=== PATIENT | male | born 1970 | race Two or more races ===

== ENCOUNTER 2021-10-07 11:28 | Emergency (ER) | payer MEDICAID, OTHER ==
[~2021-10-07] VITALS: Ht 182.9 cm; Wt 106.6 kg
[2021-10-07] MEDS ORDERED: ADENOSINE 6 MG/2 ML INJ IV ONE ×2 (11:33→11:45)
[2021-10-07] MEDS ORDERED: SODIUM CHLORIDE 0.9% 500 ML IV ONE (11:45)
[2021-10-07 12:49] LABS: Basophils # (auto) 0.1 10 ^3/uL (0-0.2); Basophils % (auto) 0.9 % (0.0-2.0); Eosinophils # (auto) 0.1 10 ^3/uL (0-0.8); Eosinophils % (auto) 1.7 % (0.0-7.0); Hematocrit 43.8 % (41.0-53.0); Hemoglobin 14.1 g/dL (13.5-17.5); Lymphocytes # (auto) 1.9 10 ^3/uL (0.4-5.4); Lymphocytes % (auto) 23.6 % (10.0-50.0); Mean Corpuscular Hemoglobin 27.4 pg (28.0-32.0); Mean Corpuscular Hgb Conc. 32.3 g/dL (32.0-36.0); Mean Corpuscular Volume 84.9 fL (80.0-100.0); Monocytes # (auto) 0.6 10 ^3/uL (0-1.3); Monocytes % (auto) 7.4 % (0.0-12.0); Neutrophils # (auto) 5.5 10 ^3/uL (1.6-8.6); Neutrophils % (auto) 66.4 % (37.0-80.0); Nucleated Red Blood Cells % 0.1 %; Red Blood Cells 5.16 10^6/uL (4.5-5.90); Red Cell Distribution Width 14.3 % (11.8-14.3); White Blood Cell 8.2 10^3/uL (4.4-10.8)
[2021-10-07 13:16] LABS: Albumin 3.7 g/dL (3.4-5.0); Calcium 8.4 mg/dL (8.5-10.1); Magnesium 2.8 mg/dL (1.6-2.6); Potassium 4.1 mmol/L (3.5-5.1)
[2021-10-07 13:20] LABS: BUN/Creatinine Ratio 15.6; Bilirubin, Total 0.2 mg/dL (0.2-1.0); Total Protein 6.4 g/dL (6.4-8.2)
[2021-10-07 14:00] VITALS: BP 128/57
== END 2021-10-07 14:02 | disposition home or self-care (01) ==
LOC: EDBD 11:28 → ER 11:28
DX: I47.1 Supraventricular tachycardia (principal); I10 Essential (primary) hypertension; E78.5 Hyperlipidemia, unspecified
CPT/HCPCS: 36415; 71045; 80053; 83735; 85025; 93005; 96361; 96374; 99285; J0153; J7040

== ENCOUNTER 2025-02-27 18:41 | Inpatient (IN) | payer BC, MEDICAID ==
[~2025-02-27] VITALS: Ht 182.9 cm; Wt 91.4 kg
[2025-02-27] MEDS: ACETAMINOPHEN 325 MG TAB PO ONE (20:06)
[2025-02-27 20:23] LABS: Eosinophils # (auto) 0.5 10 ^3/uL (0-0.8); Hematocrit 37.2 % (41.0-53.0); Lymphocytes # (auto) 2.4 10 ^3/uL (0.4-5.4); Lymphocytes % (auto) 15.5 % (10.0-50.0); Neutrophils # (auto) 11.1 10 ^3/uL (1.6-8.6)
[2025-02-27 20:24] LABS: Rapid Influenza A Negative (Negative); Rapid Influenza B Negative (Negative)
[2025-02-27 20:24] LABS: Basophils # (auto) 0.2 10 ^3/uL (0-0.2); Eosinophils % (auto) 3.2 % (0.0-7.0); Hemoglobin 12.2 g/dL (13.5-17.5); Mean Corpuscular Hemoglobin 26.8 pg (28.0-32.0); Mean Corpuscular Hgb Conc. 32.9 g/dL (32.0-36.0); Mean Corpuscular Volume 81.4 fL (80.0-100.0); Monocytes # (auto) 1.4 10 ^3/uL (0-1.3); Monocytes % (auto) 9.2 % (0.0-12.0); Neutrophils % (auto) 71.1 % (37.0-80.0); Nucleated Red Blood Cells % 0.1 %; Platelet Count (auto) 440 10^3/uL (140-450); Red Blood Cells 4.56 10^6/uL (4.5-5.90); Red Cell Distribution Width 14.3 % (11.8-14.3); White Blood Cell 15.7 10^3/uL (4.4-10.8)
[2025-02-27 20:31] LABS: COVID19 ANTIGEN SOFIA FIA NEGATIVE (NEGATIVE)
--- NOTE | 2025-02-27 20:38 | DVH ---
EXAM: XR Chest, 1 View CLINICAL INDICATION: SOB TECHNIQUE: Frontal view of the chest. COMPARISON: CHEST PORTABLE on DOS: 10/07/21 FINDINGS: LUNGS AND PLEURAL SPACES: Right basilar atelectasis or pneumonia. No pneumothorax. HEART: Unremarkable. No cardiomegaly. MEDIASTINUM: Unremarkable. Normal mediastinal contour. BONES/JOINTS: Unremarkable. No acute fracture. OTHER FINDINGS: . IMPRESSION: Right basilar atelectasis or pneumonia.
[2025-02-27 20:47] LABS: Albumin 4.2 g/dL (3.2-4.8); Alkaline Phosphatase 75 U/L (46-116); Anion Gap 9 (5-15); BUN/Creatinine Ratio 12.5 (10.0-20.0); Calcium 9.2 mg/dL (8.7-10.4); Carbon Dioxide 28 mmol/L (20-31); Chloride 101 mmol/L (98-107); Glucose 99 mg/dL (74-106); Potassium 4.4 mmol/L (3.5-5.1); Sodium 138 mmol/L (136-145); Total Protein 7.2 g/dL (5.7-8.2)
--- NOTE | 2025-02-27 20:59 | ED.PDOC ---
SOB-HPI HPI Comments 54 y/o M, with PMHx of anxiety, HLD, and HTN presents to the ED for CC of shortness of breath. Patient states, he has been experiencing shortness of breath with associated left sided chest pain [id number]. Patient reports, pain upon inhalation with a productive cough and nasal congestion. Patient describes, chest pain to be non-radiating and tight in nature. Patient comments, that he was seen at Urgent Care for symptoms and was prescribed Amoxicillin. Patient endorses completing course of antibiotics and symptoms subsiding however, symptoms returned days after. Patient denies fever, chills, sore-throat, body- aches, leg swelling, or calf pain. No other symptoms or modifying factors present at this time. Chief Complaint: Shortness of Breath Time Seen by MD: 20:05 Primary Care Provider: Dr. Álvarez Reviewed notes: Nurses Notes, Medications, Allergies Information Source: Patient Mode of Arrival: Ambulatory Severity: Moderate Timing: Months Duration: Since onset Context: At Rest PE Risk Factors: None History of: Anxiety Prehospital treatment: Breathing Tx, Other (ANTIBIOTICS) Modifying Factors: Nothing Associated Signs and Symptoms: Cough, Nasal Congestion, Chest Pain Radiation: No Radiation Location: Chest (R) If cough with SOB: Productive Past Medical History PAST MEDICAL HISTORY: Anxiety, High Lipids, HTN Surgical History: Hernia Repair Family History Family History: Reviewed,noncontributory to illness, Family hx of DM Social History Smoker: Non-Smoker Alcohol: Denies ETOH Use Drugs: Denies Drug Use Lives In: Home Constitutional: denies: chills, diaphoresis, fatigue, fever, malaise, sweats, weakness, others EENTM: reports: nose congestion; denies: blurred vision, double vision, ear bleeding, ear discharge, ear drainage, ear pain, ear ringing, eye pain, eye redness, hearing loss, mouth pain, mouth swelling, nasal discharge, nose bleeding, nose pain, photophobia, tearing, throat pain, throat swelling, voice changes, others Respiratory: reports: cough, shortness of breath; denies: hemoptysis, orthopnea, SOB at rest, SOB with excertion, stridor, wheezing, others Cardiovascular: reports: chest pain; denies: dizzy spells, diaphoresis, Dyspnea on exertion, edema, irregular heart beat, left arm pain, lightheadedness, palpitations, PND, syncope, others Gastrointestinal: denies: abdomen distended, abdominal pain, blood streaked bowels, constipated, diarrhea, dysphagia, difficulty swallowing, hematemesis, melena, nausea, poor appetite, poor fluid intake, rectal bleeding, rectal pain, vomiting, others Genitourinary: denies: burning, dysuria, flank pain, frequency, hematuria, incontinence, penile discharge, penile sore, pain, testicle pain, testicle swelling, urgency, others Neurological: denies: dizziness, fainting, headache, left sided numbness, left sided weakness, numbness, paresthesia, pre-existing deficit, right sided numbness, right sided weakness, seizure, speech problems, tingling, tremors, weakness, others Musculoskeletal: denies: back pain, gout, joint pain, joint swelling, muscle pain, muscle stiffness, neck pain, others Integumetry: denies: bruises, change in color, change in hair/nails, dryness, laceration, lesions, lumps, rash, wounds, others Allergic/Immunocompromised: denies: Difficulty Healing, Frequent Infections, Hives, Itching, others Hematologic/Lymphatic: denies: anemia, blood clots, easy bleeding, easy bruising, swollen glands, others Endocrine: denies: excessive hunger, excessive sweating, excessive thirst, excessive urination, flushing, intolerance to cold, intolerance to heat, unexplained weight gain, unexplained weight loss, others Psychiatric: denies: anxiety, bipolar disorder, depression, hopeless, panic disorder, schizophrenia, sleepless, suicidal, others All Other Systems: Reviewed and Negative Physical Exam General Appearance: No Apparent Distress, Normal HEENT: Normal ENT Inspection, Pharynx Normal, TMs Normal Neck: Full Range of Motion, Non-Tender, Normal, Normal Inspection Respiratory: Chest Non-Tender, Lungs Clear, No Accessory Muscle Use, No Respiratory Distress, Other (LABORED BREATHING) Cardiovascular: No Edema, No Murmur, No Gallop, Normal Peripheral Pulses, Tachycardia Breast Exam: Deferred Gastrointestinal: No Organomegaly, Non Tender, No Pulsatile Mass, Normal Bowel Sounds, Soft Genitalia: Deferred Pelvic: Deferred Rectal: Deferred Extremities: No calf tenderness, Normal capillary refill, Normal inspection, Normal range of motion, Non-tender, No pedal edema Musculoskeletal : Apperance: Normal Neurologic: 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 Was a procedure done?: No Differential Dx Differential Diagnosis: Pneumonia, Sinusitis, Pharyngitis, URI X-Ray, Labs, Meds, VS Vital Signs Date Time Temp Pulse Resp B/P (MAP) Pulse Ox O2 Delivery O2 Flow Rate FiO2 02/27/25 22:03 98.0 100 16 104/61 (75) 98 98.0 02/27/25 20:06 100.9 02/27/25 20:02 114 02/27/25 19:47 18 99 Nasal Cannula* 3 32 02/27/25 19:47 100.9 111 18 126/70 (88) 99 100.9 Lab Test 02/27/25 20:07 02/27/25 19:50 Range/Units White Blood Count 15.7 H 4.4-10.8 10^3/uL Red Blood Count 4.56 4.5-5.90 10^6/uL Hemoglobin 12.2 L 13.5-17.5 g/dL Hematocrit 37.2 L 41.0-53.0 % Mean Corpuscular Volume 81.4 80.0-100.0 fL Mean Corpuscular Hemoglobin 26.8 L 28.0-32.0 pg Mean Corpuscular Hemoglobin Concent 32.9 32.0-36.0 g/dL Red Cell Distribution Width 14.3 11.8-14.3 % Platelet Count 440 140-450 10^3/uL Mean Platelet Volume 8.0 6.9-10.8 fL Neutrophils (%) (Auto) 71.1 37.0-80.0 % Lymphocytes (%) (Auto) 15.5 10.0-50.0 % Monocytes (%) (Auto) 9.2 0.0-12.0 % Eosinophils (%) (Auto) 3.2 0.0-7.0 % Basophils (%) (Auto) 1.0 0.0-2.0 % Neutrophils # (Auto) 11.1 H 1.6-8.6 10 ^3/uL Lymphocytes # (Auto) 2.4 0.4-5.4 10 ^3/uL Monocytes # (Auto) 1.4 H 0-1.3 10 ^3/uL Eosinophils # (Auto) 0.5 0-0.8 10 ^3/uL Basophils # (Auto) 0.2 0-0.2 10 ^3/uL Nucleated Red Blood Cells 0.1 % Sodium Level 138 136-145 mmol/L Potassium Level 4.4 3.5-5.1 mmol/L Chloride Level 101 98-107 mmol/L Carbon Dioxide Level 28 20-31 mmol/L Anion Gap 9 5-15 Blood Urea Nitrogen 8 L 9-23 mg/dL Creatinine 0.64 L 0.700-1.30 mg/dL Glomerular Filtration Rate Calc 111 >90 mL/min BUN/Creatinine Ratio 12.5 10.0-20.0 Serum Glucose 99 74-106 mg/dL Lactic Acid Level 0.8 0.4-2.0 mmol/L Calcium Level 9.2 8.7-10.4 mg/dL Total Bilirubin 0.2 0.2-1.0 mg/dL Aspartate Amino Transferase (AST) 9 L 13-40 U/L Alanine Aminotransferase (ALT) < 9 7-40 U/L Alkaline Phosphatase 75 46-116 U/L B-Type Natriuretic Peptide 31.72 0-100 pg/mL Total Protein 7.2 5.7-8.2 g/dL Albumin 4.2 3.2-4.8 g/dL Influenza Type A Antigen Negative Negative Influenza Type B Antigen Negative Negative SARS-CoV-2 Antigen (Rapid) Negative NEGATIVE Current Medications Medications (Trade) Dose Ordered Sig/Raquel Route Start Time Stop Time Status Last Admin Acetaminophen (Tylenol Tablet) 650 mg ONCE ONCE PO 02/27/25 19:55 02/27/25 19:56 DC 02/27/25 20:[address] [address] Ph: [phone] DIAGNOSTIC IMAGING Diagnostic Imaging Report : [id number] Signed PATIENT: BRENT CHILDRESS ACCT: [id number] UNIT: [id number] : 1970 LOC: ER ROOM / BED: / AGE / SEX: 54 / M ADM STATUS: REG ER SERVICE 04 ORDERING PHYSICIAN: SUDHIR HARO PROCEDURE(s): CXR1 - CHEST XRAY 1 VIEW REASON: SOB ORDER NUMBER(s): [id number], ACCESSION NUMBER(s): [id number] EXAM: XR Chest, 1 View CLINICAL INDICATION: SOB TECHNIQUE: Frontal view of the chest. COMPARISON: CHEST PORTABLE on DOS: 10/07/21 FINDINGS: LUNGS AND PLEURAL SPACES: Right basilar atelectasis or pneumonia. No pneumothorax. HEART: Unremarkable. No cardiomegaly. MEDIASTINUM: Unremarkable. Normal mediastinal contour. BONES/JOINTS: Unremarkable. No acute fracture. OTHER FINDINGS: . IMPRESSION: Right basilar atelectasis or pneumonia. ATED BY: GERALDINE VOSS MD DICTATED DATE/TIME: 02/27/252035 SIGNED BY: GERALDINE VOSS MD SIGNED DATE/TIME: 02/27/252035 CC: X-Ray, Labs, Meds, VS Comment IMAGING: X-RAYS AND CT SCANS WERE REVIEWED AND INTERPRETED BY THIS PROVIDER, RIGHT LOWER LOBE PNEUMONIA E. PENDING RADIOLOGY REVIEW. LABORATORY: LABS REVIEWED AND INTERPRETED BY THIS PROVIDER. ELEVATED WHITE COUNT PATIENT HAS PRIOR MEDICAL VISITS REVIEWED. MED RECONCILIATION PERFORMED VITAL SIGNS REVIEWED PATIENT WILL BE ADMITTED FOR RIGHT LOWER LOBE PNEUMONIA. PATIENT HAS FAILED OUTPATIENT TREATMENT OF ANTIBIOTICS. PATIENT IS MILDLY HYPOXIC UPON ARRIVAL, PLACED ON 3 L NASAL CANNULA. Time of 1ST Reevaluation: 20:35 Reevaluation 1ST: Unchanged Patient Education/Counseling: Diagnosis, Treatment Family Education/Counseling: No Family Present Departure 1 Departure Time of Disposition: 22:07 Impression: Primary Impression: Pneumonia Qualified Codes: J18.9 - Pneumonia, unspecified organism Disposition: ADMITTED INPATIENT Condition: Stable Critical Care Note Critical Care Time?: No Stability Stability form required: No Heart Score Heart Score: Heart Score Response (Comments) Value History N/A 0 EKG N/A 0 Age N/A 0 Risk Factors N/A 0 Troponin N/A 0 Total 0 I personally scribed for SUDHIR HAROP ([email or web address]) on 02/27/25 at 20:59. Electronically submitted by Gale Chew [email or web address]). I personally scribed for SUDHIR HAROP ([email or web address]) on 02/27/25 at 21:23. Electronically submitted by Gale Chew [email or web address]). SUDHIR HARO [facility] February 27, 2025 20:59
[2025-02-27 21:17] LABS: Alanine Aminotransferase < 9 U/L (7-40); Aspartate Aminotransferase 9 U/L (13-40); Bilirubin, Total 0.2 mg/dL (0.2-1.0); Blood Urea Nitrogen 8 mg/dL (9-23)
--- NOTE | 2025-02-27 22:03 | ECG ---
[facility] Test Date: 2025-02-27 Test Time: 20:02:21 Pat Name: BRENT CHILDRESS Department: ER Room: [address] [place] [address] Gender: M Career Services Representative: EMMANUEL : 1970 Requested By: SUDHIR HARO Order Number: [id number] Reading MD: Drake Morejon Measurements Intervals Williamson Rate: 114 P: 50 CO: 148 QRS: -50 QRSD: 86 T: 32 QT: 326 QTc: 449 Interpretive Statements Sinus tachycardia Probable left atrial enlargement Left anterior fascicular block Abnormal R-wave progression, late transition Electronically Signed On 02-28-2025 13:15:23 PDT by Drake Morejon Please click the below link to view image of tracing.
[2025-02-27] MEDS ORDERED: MORPHINE SULFATE INJ 2 MG/ml SYRG IV PRN (23:30)
[2025-02-27] MEDS ORDERED: DOCUSATE SOD 100 MG CAP PO PRN (23:30)
[2025-02-27] MEDS ORDERED: ACETAMINOPHEN 325 MG TAB PO PRN (23:30)
[2025-02-27] MEDS ORDERED: NITROGLYCERIN 0.4 MG SL TAB SL PRN (23:30)
[2025-02-28] VITALS (15 sets, daily range): BP systolic 104–109; BP diastolic 61–64; PULSE 100–116; RESP 14–20; TEMP 98.1; O2SAT 93–98
[2025-02-28] MEDS: cefTRIAXone 1GM/50ML D5W 50 ML IV ONE (00:12)
[2025-02-28] MEDS: AZITHROMYCIN 500MG/ 250ML 250 ML IV ONE (01:49)
--- NOTE | 2025-02-28 03:08 | DVHHP2 ---
MICHAEL OLPEZ CAREER CONSULTANT 02/28/25 0308: History of Present Illness Reason for Visit: Cough congestion History of Present Illness 54-year-old male presents with complaints of cough congestion, shortness of breath and chest tightness x1 month. Patient was initially treated with amoxicillin in the 1st week of January. However symptoms continued. return to urgent care a few weeks later because symptoms had not improved and was then treated with azithromycin. Patient states he completed all antibiotic treatments. Is still complaining of right-sided chest tightness and congestion. On arrival to the emergency department patient is found to be febrile. Treat the emergency department evaluation W 15.7. CXR impression reads right basilar pneumonia or atelectasis. At this time patient denies dizziness, chest pain, nausea, vomiting, leg swelling. Pulmonary: Asthma Smoke: No ALCOHOL: none Drugs: None Lives: with Family Review of Systems Constitutional: Yes: Fever, Weakness; No: Chills, Sweats, Malaise, Other Eyes: No: Pain, Vision change, Conjunctivae inflammation, Eyelid inflammation, Other, Redness ENT: No: Ear pain, Ear discharge, Nose pain, Nose discharge, Nose congestion, Mouth pain, Mouth swelling, Throat pain, Throat swelling, Other Respiratory: Cough, Shortness of breath; No: Dry, SOB with excertion, Wheezing, Hemoptysis, Pleuritic Pain, Sputum, Wheezing, Other Cardiovascular: No: Chest Pain, Palpitations, Orthopnea, Paroxysmal Noc. Dyspnea, Edema, Lt Headedness, Other Gastrointestinal: No: Nausea, Vomiting, Abdominal Pain, Diarrhea, Constipation, Melena, Hematochezia, Other Genitourinary: No Dysuria, No Frequency, No Incontinence, No Hematuria, No Retention, No Other Musculoskeletal: No: other, neck pain, shoulder pain, arm pain, back pain, hand pain, leg pain, foot pain Skin: No: Rash, Lesions, Jaundice, Bruising, Other Neurological: No: Weakness, Numbness, Incoordination, Change in speech, Confusion, Seizures, Other Allergies: Coded Allergies: NO KNOWN ALLERGIES (Unverified , 10/07/21) Medications Current Medications Medications Dose Ordered Sig/Raquel Route Start Time Stop Time Status Last Admin Dose Admin Docusate Sodium 100 mg BIDPRN PRN PO 02/27/25 23:30 Acetaminophen 650 mg Q6HP PRN PO 02/27/25 23:30 Acetaminophen/ Hydrocodone Bitart 1 tab Q6HPRN PRN PO 02/27/25 23:30 Ondansetron HCl 4 mg Q4HP PRN IV 02/27/25 23:30 Morphine Sulfate 2 mg Q4HPRN PRN IV 02/27/25 23:30 Enoxaparin Sodium 40 mg DAILY SC 02/28/25 10:00 Nitroglycerin 0.4 mg Q5MINP PRN SL 02/27/25 23:30 Morphine Sulfate 2 mg Q30M PRN IV 02/27/25 23:30 Ceftriaxone Sodium 50 ml @ 100 mls/hr DAILY IV 02/28/25 10:00 Azithromycin 250 ml @ 125 mls/hr DAILY IV 02/28/25 11:00 Albuterol 2.5 mg Q4HWA NEB 02/28/25 06:00 Exam Vital Signs Vital Signs Date Time Temp Pulse Resp B/P (MAP) Pulse Ox O2 Delivery O2 Flow Rate FiO2 02/28/25 00:26 111 18 104/61 98 3.0 32 02/27/25 22:03 98.0 98.0 02/27/25 19:47 Nasal Cannula* General Appearance: Alert, Oriented X3, Cooperative, mild distress HEENT: Atraumatic, PERRLA, EOMI Respiratory: Other (Diminished air exchange.) Cardiovascular: Regular rate, Normal S1, Normal S2 Abdominal: Normal bowel sounds, Soft, No tenderness Extremities: No clubbing, No cyanosis, No edema Skin: No breakdown Neuro: Normal gait, Normal speech, Strength at 5/5 X4 ext Psych/Mental Status: Mental status NL, Mood NL Labs/Xrays Labs Test 02/27/25 20:07 02/27/25 19:50 Range/Units White Blood Count 15.7 H 4.4-10.8 10^3/uL Red Blood Count 4.56 4.5-5.90 10^6/uL Hemoglobin 12.2 L 13.5-17.5 g/dL Hematocrit 37.2 L 41.0-53.0 % Mean Corpuscular Volume 81.4 80.0-100.0 fL Mean Corpuscular Hemoglobin 26.8 L 28.0-32.0 pg Mean Corpuscular Hemoglobin Concent 32.9 32.0-36.0 g/dL Red Cell Distribution Width 14.3 11.8-14.3 % Platelet Count 440 140-450 10^3/uL Mean Platelet Volume 8.0 6.9-10.8 fL Neutrophils (%) (Auto) 71.1 37.0-80.0 % Lymphocytes (%) (Auto) 15.5 10.0-50.0 % Monocytes (%) (Auto) 9.2 0.0-12.0 % Eosinophils (%) (Auto) 3.2 0.0-7.0 % Basophils (%) (Auto) 1.0 0.0-2.0 % Neutrophils # (Auto) 11.1 H 1.6-8.6 10 ^3/uL Lymphocytes # (Auto) 2.4 0.4-5.4 10 ^3/uL Monocytes # (Auto) 1.4 H 0-1.3 10 ^3/uL Eosinophils # (Auto) 0.5 0-0.8 10 ^3/uL Basophils # (Auto) 0.2 0-0.2 10 ^3/uL Nucleated Red Blood Cells 0.1 % Sodium Level 138 136-145 mmol/L Potassium Level 4.4 3.5-5.1 mmol/L Chloride Level 101 98-107 mmol/L Carbon Dioxide Level 28 20-31 mmol/L Anion Gap 9 5-15 Blood Urea Nitrogen 8 L 9-23 mg/dL Creatinine 0.64 L 0.700-1.30 mg/dL Glomerular Filtration Rate Calc 111 >90 mL/min BUN/Creatinine Ratio 12.5 10.0-20.0 Serum Glucose 99 74-106 mg/dL Lactic Acid Level 0.8 0.4-2.0 mmol/L Calcium Level 9.2 8.7-10.4 mg/dL Total Bilirubin 0.2 0.2-1.0 mg/dL Aspartate Amino Transferase (AST) 9 L 13-40 U/L Alanine Aminotransferase (ALT) < 9 7-40 U/L Alkaline Phosphatase 75 46-116 U/L B-Type Natriuretic Peptide 31.72 0-100 pg/mL Total Protein 7.2 5.7-8.2 g/dL Albumin 4.2 3.2-4.8 g/dL Influenza Type A Antigen Negative Negative Influenza Type B Antigen Negative Negative SARS-CoV-2 Antigen (Rapid) Negative NEGATIVE Assessment/Plan Assessment/Plan Right lobe pneumonia Hypoxia Plan Admit to telemetry Consult pulmonology. Bronchodilators. Supplemental oxygen to maintain oxygen saturation greater than 93%. RT monitoring. Incentive spirometry. IV ABX. GI ppx pepcid / dvt ppx lovenox Plan discussed with: Patient My Orders Orders - MICHAEL LOPEZ NP Procedure Category Date Status Time Admit ADMIT 02/27/25 Transmitted 23:27 Code Status CODE 02/27/25 Transmitted 23:27 Vital Signs SIA 02/27/25 In Process 23:27 Review Orders With SIA 02/27/25 In Process Adm.Md 23:27 Encourage Activity As SIA 02/27/25 In Process Tolerate 23:27 Consistent DIET 02/28/25 Transmitted Carb(Ccho)Diabetes Breakfast Oxygen By Face Mask RT 02/27/25 Transmitted 23:27 Docusate Sodium PHA 02/27/25 In Process Capsule (Colace 23:30 Acetaminophen Tablet PHA 02/27/25 In Process (Tylenol Tablet) 23:30 Notify Of Changes SIA 02/27/25 In Process From Base 23:27 Advance Directive SIA 02/27/25 In Process 23:27 Basic Metabolic Panel LAB 02/28/25 Logged 05:00 Basic Metabolic Panel LAB 03/01/25 Verified 05:00 Basic Metabolic Panel LAB 03/02/25 Verified 05:00 Complete Blood Count LAB 02/28/25 Logged 05:00 Complete Blood Count LAB 03/01/25 Verified 05:00 Complete Blood Count LAB 03/02/25 Verified 05:00 Patient Condition ORDERS 02/27/25 Transmitted 23:27 Allergies SIA 02/27/25 In Process 23:27 Hydrocodone-Acet PHA 02/27/25 In Process 5/325mg Tab ([place] 23:30 Ondansetron Hcl PHA 02/27/25 In Process (Zofran) 23:30 Morphine Sulfate PHA 02/27/25 In Process Injection 23:30 Enoxaparin Sodium PHA 02/28/25 In Process (Lovenox) 10:00 Sequential SIA 02/27/25 In Process Compression Device Nitroglycerin PHA 02/27/25 In Process Sublingual (Ntrostat 23:30 Morphine Sulfate PHA 02/27/25 In Process Injection 23:30 Stat Ekg For Chest SIA 02/27/25 In Process Pain 23:27 Notify Of Changes SIA 02/27/25 In Process From Base 23:27 Wincher For SIA 02/27/25 In Process 24 Hours 23:27 Emergency Dysrhythmia SIA 02/27/25 In Process Protocol 23:27 Rhythm Strips Once SIA 02/27/25 In Process Every Shift 23:27 Oxygen By Nasal RT 02/27/25 Transmitted Cannula 23:27 Ceftriaxone 1gm/50ml PHA 02/28/25 In Process D5w (Rocephin) 10:00 Azithromycin 500mg/ PHA 02/28/25 In Process 250ml (Zithromax 50 11:00 Albuterol Medneb PHA 02/28/25 In Process (Ventolin Medneb) 06:00 Respiratory Culture ALLIE 02/27/25 Logged W/ Gs 23:27 *Consult CONS 02/27/25 Transmitted / 23:27 Date of Service: February 28, 2025 Billing Provider: IAN CARTER MD Common Visit Codes: NOT BILLABLE IAN CARTER MD 02/28/25 1412: Review of Systems Allergies: Coded Allergies: NO KNOWN ALLERGIES (Unverified , 10/07/21) Assessment/Plan My Orders Patient's chart is reviewed. Patient is seen evaluated and admitted by nurse practitioner. I agree with the nurse practitioner's evaluation, documentation, assessment and care plan as outlined. MICHAEL LOPEZ NP February 28, 2025 03:08 IAN CARTER MD February 28, 2025 14:12
[2025-02-28 06:11] LABS: Basophils # (auto) 0.1 10 ^3/uL (0-0.2); Lymphocytes # (auto) 1.7 10 ^3/uL (0.4-5.4); Lymphocytes % (auto) 10.7 % (10.0-50.0)
[2025-02-28 06:17] LABS: Basophils % (auto) 0.5 % (0.0-2.0); Eosinophils # (auto) 0.4 10 ^3/uL (0-0.8); Eosinophils % (auto) 2.3 % (0.0-7.0); Hematocrit 36.7 % (41.0-53.0); Mean Corpuscular Hemoglobin 26.8 pg (28.0-32.0); Mean Corpuscular Hgb Conc. 32.8 g/dL (32.0-36.0); Mean Corpuscular Volume 81.7 fL (80.0-100.0); Monocytes # (auto) 1.6 10 ^3/uL (0-1.3); Monocytes % (auto) 10.2 % (0.0-12.0); Neutrophils % (auto) 76.3 % (37.0-80.0); Platelet Count (auto) 413 10^3/uL (140-450); Red Blood Cells 4.49 10^6/uL (4.5-5.90); Red Cell Distribution Width 14.1 % (11.8-14.3); White Blood Cell 15.7 10^3/uL (4.4-10.8)
[2025-02-28] MEDS: HYDROcodone-ACET 5/325MG TAB PO PRN (06:28)
[2025-02-28 06:34] LABS: Anion Gap 9 (5-15); Carbon Dioxide 29 mmol/L (20-31); Chloride 100 mmol/L (98-107); Potassium 4.2 mmol/L (3.5-5.1); Sodium 138 mmol/L (136-145)
[2025-02-28 06:35] LABS: Calcium 9.2 mg/dL (8.7-10.4)
[2025-02-28 06:40] LABS: BUN/Creatinine Ratio 12.5 (10.0-20.0); Glucose 106 mg/dL (74-106)
[2025-02-28 06:41] LABS: Blood Urea Nitrogen 8 mg/dL (9-23)
[2025-02-28] MEDS: ALBUTEROL SULF 2.5 MG/0.5ML(0.5%) NEB SOLN NEB SCH ×2 (07:08→18:38)
[2025-02-28] MEDS: ONDANSETRON HCL 4 MG/2 ML VIAL IV PRN (08:25)
[2025-02-28] MEDS: MORPHINE SULFATE INJ 2 MG/ml SYRG IV PRN (08:25)
[2025-02-28] MEDS: cefTRIAXone 1GM/50ML D5W 50 ML IV SCH (10:03)
[2025-02-28] MEDS: ENOXAPARIN SOD 40 MG/0.4 ML SYRINGE SC SCH (10:04)
[2025-02-28] MEDS: AZITHROMYCIN 500MG/ 250ML 250 ML IV SCH (11:30)
[2025-02-28] MEDS: HYDROcodone-ACET 10/325MG TAB PO PRN (13:57)
[2025-02-28] MEDS ORDERED: IPRATROPIUM BROM 0.5 MG/2.5ML INH SOL NEB SCH (18:00)
[2025-02-28] MEDS: IPRATROPIUM BROM 0.5 MG/2.5ML INH SOL NEB SCH (18:38)
[2025-02-28] MEDS: BUDESONIDE (INHALATION) 0.5 MG/2 ML NEB NEB SCH (18:38)
--- NOTE | 2025-02-28 22:56 | DVHINCON2 ---
Date of service: February 28, 2025 Referring Physician Gordo Walsh NP Reason for Consultation Acute hypoxic respiratory failure and pneumonia. History of Present Illness A 54-year-old man with past medical history of asthma presented to ED on 02/27/25 with complaints of cough, congestion, shortness of breath and chest tightness x1 month. Patient was initially treated with amoxicillin in the first week of January, however symptoms continued. He returned to urgent care a few weeks later because symptoms had not improved and was then treated with azithromycin. Patient stated he completed all antibiotic treatments, still complaining of right-sided chest tightness and congestion. On arrival to ED, patient was found to be febrile, WBC of 15.7, CXR revealing right basilar pneumonia or atelectasis. Patient was admitted for further care and pulmonary consultation is requested for evaluation and management of acute hypoxic respiratory failure and pneumonia. Review of Systems: 14-point review of systems negative unless otherwise noted above. Past Medical History: Asthma Past Surgical History: None Medications: Reviewed. Allergies: No known drug allergies. Family History: No family history of premature CAD. No family history of lung disorders. Social History: Nonsmoker. No alcohol or illicit drug use. Allergies: Coded Allergies: NO KNOWN ALLERGIES (Unverified , 10/07/21) Home Meds Reported Medications Beclomethasone Dipropionate (Qvar Redihaler) 40 Mcg/Act Aer, 40 MCG IN DAILY, AER 03/01/25 Albuterol Sulfate (VENTOLIN MDI) 90 Mcg Ih, 90 MCG IN DAILY, INH 03/01/25 Hydrocodone-Acetaminophen (Hydrocodone Bitartrate/AC 10-325 mg) 1 Tab Tab, 1 TAB PO DAILY, TAB 03/01/25 Current Medications Current Medications Medications (Trade) Dose Ordered Sig/Raquel Route PRN Reason Start Time Stop Time Status Last Admin Docusate Sodium (Colace Capsule) 100 mg BIDPRN PRN PO FOR CONSTIPATION 02/27/25 23:30 Acetaminophen (Tylenol Tablet) 650 mg Q6HP PRN PO PAIN SCALE 1-3 OR TEMP>100.4 02/27/25 23:30 Acetaminophen/ Hydrocodone Bitart ([place] 5/325MG Tab) 1 tab Q6HPRN PRN PO MODERATE PAIN (4-6 PAIN SCALE) 02/27/25 23:30 02/28/25 12:15 DC 02/28/25 06:28 Ondansetron HCl (Zofran) 4 mg Q4HP PRN IV NAUSEA / VOMITING 02/27/25 23:30 02/28/25 08:25 Morphine Sulfate 2 mg Q4HPRN PRN IV SEVERE PAIN (7-10 PAIN SCALE) 02/27/25 23:30 02/28/25 08:25 Enoxaparin Sodium (Lovenox) 40 mg DAILY SC 02/28/25 10:00 02/28/25 10:04 Nitroglycerin (Ntrostat Sublingual) 0.4 mg Q5MINP PRN SL FOR CHEST PAIN 02/27/25 23:30 Morphine Sulfate 2 mg Q30M PRN IV FOR CHEST PAIN 02/27/25 23:30 Ceftriaxone Sodium 50 ml @ 100 mls/hr DAILY IV 02/28/25 10:00 02/28/25 10:03 Azithromycin 250 ml @ 125 mls/hr DAILY IV 02/28/25 11:00 02/28/25 11:30 Albuterol (Ventolin Medneb) 2.5 mg Q4HWA [facility] 02/28/25 06:00 02/28/25 14:13 DC 02/28/25 13:29 Acetaminophen/ Hydrocodone Bitart ([place] 10/325MG Tab) 1 tab Q6HP PRN PO SEVERE PAIN (7-10 PAIN SCALE) 02/28/25 12:15 02/28/25 22:16 Albuterol (Ventolin Medneb) 2.5 mg Q6HWA [facility] 02/28/25 18:00 02/28/25 18:38 Ipratropium [place] (Atrovent Medneb) 0.5 mg Q6HR [facility] 02/28/25 18:00 02/28/25 14:32 DC Budesonide (Pulmicort) 0.5 mg BID NEB 02/28/25 22:00 02/28/25 18:38 Ipratropium [place] (Atrovent Medneb) 0.5 mg Q6HWA [facility] 02/28/25 18:00 02/28/25 18:38 Vital Signs Vital Signs Date Time Temp Pulse Resp B/P (MAP) Pulse Ox O2 Delivery O2 Flow Rate FiO2 02/28/25 21:00 98.1 110 19 109/64 (79) 95 98.1 02/28/25 18:29 Nasal Cannula* 1 24 Physical Exam Gen.: Patient lying in bed in no apparent distress. On supplemental oxygen. Head: Normocephalic, atraumatic. Eyes: EOMI/PERRLA. Ears: Normal hearing. Normal anatomy. Neck/trachea: Trachea midline, supple. Nose: Normal external anatomy. Mouth: Moist mucous membranes. Chest: Decreased air entry bilaterally. No wheezing or rhonchi. Cardiovascular: Positive S1, positive S2. Regular rate and rhythm. Abdomen: Positive bowel sounds in all 4 quadrants. Soft, non-tender, non- distended. : Deferred. Rectal: Deferred. Skin: Warm, dry. Intact. Extremities: 2+ radial pulses bilaterally. No lower extremity edema. Neuro: Awake, alert, oriented x3. No gross motor or sensory deficits. Cranial nerves II through XII intact. Gait not assessed. Labs/Diagnostic Data Labs Test 02/28/25 05:40 02/27/25 20:07 02/27/25 19:50 Range/Units White Blood Count 15.7 H 4.4-10.8 10^3/uL Red Blood Count 4.49 L 4.5-5.90 10^6/uL Hemoglobin 12.0 L 13.5-17.5 g/dL Hematocrit 36.7 L 41.0-53.0 % Mean Corpuscular Volume 81.7 80.0-100.0 fL Mean Corpuscular Hemoglobin 26.8 L 28.0-32.0 pg Mean Corpuscular Hemoglobin Concent 32.8 32.0-36.0 g/dL Red Cell Distribution Width 14.1 11.8-14.3 % Platelet Count 413 140-450 10^3/uL Mean Platelet Volume 8.4 6.9-10.8 fL Neutrophils (%) (Auto) 76.3 37.0-80.0 % Lymphocytes (%) (Auto) 10.7 10.0-50.0 % Monocytes (%) (Auto) 10.2 0.0-12.0 % Eosinophils (%) (Auto) 2.3 0.0-7.0 % Basophils (%) (Auto) 0.5 0.0-2.0 % Neutrophils # (Auto) 12.0 H 1.6-8.6 10 ^3/uL Lymphocytes # (Auto) 1.7 0.4-5.4 10 ^3/uL Monocytes # (Auto) 1.6 H 0-1.3 10 ^3/uL Eosinophils # (Auto) 0.4 0-0.8 10 ^3/uL Basophils # (Auto) 0.1 0-0.2 10 ^3/uL Nucleated Red Blood Cells 0.0 % Sodium Level 138 136-145 mmol/L Potassium Level 4.2 3.5-5.1 mmol/L Chloride Level 100 98-107 mmol/L Carbon Dioxide Level 29 20-31 mmol/L Anion Gap 9 5-15 Blood Urea Nitrogen 8 L 9-23 mg/dL Creatinine 0.64 L 0.700-1.30 mg/dL Glomerular Filtration Rate Calc 111 >90 mL/min BUN/Creatinine Ratio 12.5 10.0-20.0 Serum Glucose 106 74-106 mg/dL Calcium Level 9.2 8.7-10.4 mg/dL Lactic Acid Level 0.8 0.4-2.0 mmol/L Total Bilirubin 0.2 0.2-1.0 mg/dL Aspartate Amino Transferase (AST) 9 L 13-40 U/L Alanine Aminotransferase (ALT) < 9 7-40 U/L Alkaline Phosphatase 75 46-116 U/L B-Type Natriuretic Peptide 31.72 0-100 pg/mL Total Protein 7.2 5.7-8.2 g/dL Albumin 4.2 3.2-4.8 g/dL Influenza Type A Antigen Negative Negative Influenza Type B Antigen Negative Negative SARS-CoV-2 Antigen (Rapid) Negative NEGATIVE Microbiology Date/Time Source Procedure Growth Status 02/27/25 20:07 Blood Blood Culture - Preliminary NO GROWTH AFTER 24 HOURS OF INCUBATION. Resulted Assessment Impression: Acute hypoxic respiratory failure Dependence on supplemental oxygen Pneumonia, likely gram negative/gram positive Atelectasis Anxiety Asthma, stable. Plan: Supplemental oxygen 2 LPM NC Titrate to keep O2 sats above 92%. Taper O2 as tolerated CXR on 02/27/25 demonstrates right basilar atelectasis or pneumonia. Continue bronchodilators. Continue antibiotics Incentive spirometry Anxiolytic Monitor renal function. Monitor electrolytes. Supplement as necessary. Monitor ins and outs. DVT prophylaxis. Prognosis: Poor given patient's multiple co-morbidities. Rest of plan per hospitalist and other consultants. Thank you, JACKIE Walsh, for allowing me to participate in this patient's care. Further recommendations will depend on the patient's clinical course. Please do not hesitate to contact me if you have any questions or concerns. This medical document was created using an electronic medical record system with [employer] dictation system. Although these documentations are being carefully reviewed, there may still be some phonetic and typographical changes. The errors are purely typographical, due to imperfection on the software program, and do not reflect any compromise in the patient's medical care. Plan discussed with: Patient, Other (JUSTIN Coronado/JACKIE Walsh/) TRUE REGAN MD February 28, 2025 22:56
[2025-03-01] VITALS (15 sets, daily range): BP systolic 98–122; BP diastolic 58–72; PULSE 91–109; RESP 16–28; TEMP 97.8–98.4; O2SAT 90–99
[2025-03-01] MEDS ORDERED: HYDR-4798 PO (03:47)
[2025-03-01] MEDS ORDERED: BECL40AE11 IN (03:50)
[2025-03-01] MEDS ORDERED: ALBUAER3 IN (03:50)
[2025-03-01 06:11] LABS: Basophils # (auto) 0.1 10 ^3/uL (0-0.2); Basophils % (auto) 0.6 % (0.0-2.0); Eosinophils # (auto) 0.3 10 ^3/uL (0-0.8); Eosinophils % (auto) 2.2 % (0.0-7.0); Hematocrit 36.7 % (41.0-53.0); Hemoglobin 12.1 g/dL (13.5-17.5); Lymphocytes # (auto) 2.1 10 ^3/uL (0.4-5.4); Lymphocytes % (auto) 14.2 % (10.0-50.0); Mean Corpuscular Volume 81.7 fL (80.0-100.0); Monocytes # (auto) 1.7 10 ^3/uL (0-1.3); Monocytes % (auto) 11.3 % (0.0-12.0); Neutrophils # (auto) 10.6 10 ^3/uL (1.6-8.6); Neutrophils % (auto) 71.7 % (37.0-80.0); Platelet Count (auto) 402 10^3/uL (140-450); Red Blood Cells 4.49 10^6/uL (4.5-5.90); White Blood Cell 14.8 10^3/uL (4.4-10.8)
[2025-03-01 06:26] LABS: Anion Gap 9 (5-15); Calcium 9.4 mg/dL (8.7-10.4); Carbon Dioxide 28 mmol/L (20-31); Chloride 99 mmol/L (98-107); Potassium 4.4 mmol/L (3.5-5.1); Sodium 136 mmol/L (136-145)
[2025-03-01 06:32] LABS: BUN/Creatinine Ratio 11.5 (10.0-20.0); Glucose 101 mg/dL (74-106)
[2025-03-01 06:48] LABS: Blood Urea Nitrogen 7 mg/dL (9-23)
--- NOTE | 2025-03-01 16:34 | DVHPN2 ---
Progress Note - Dictate Date Seen: March 01, 2025 Medical Necessity Reason Pt with a Central, PICC or Fol: No Subjective Feeling better however still complains of mild pleuritic chest discomfort when taking deep breaths on the right side. vital signs Vital Sign Date Time Temp Pulse Resp B/P (MAP) Pulse Ox O2 Delivery O2 Flow Rate FiO2 03/01/25 12:04 104 18 99 03/01/25 11:58 Room Air 03/01/25 11:58 0 21 03/01/25 09:33 104/60 03/01/25 08:00 98.4 98.4 Total Intake and Output 02/28/25 02/28/25 03/01/25 15:00 23:00 07:00 Intake Total 50 ml 650 ml Balance 50 ml 650 ml medications Current Medications Medications Dose Ordered Sig/Raquel Route Start Time Stop Time Status Last Admin Dose Admin Docusate Sodium 100 mg BIDPRN PRN PO 02/27/25 23:30 Acetaminophen 650 mg Q6HP PRN PO 02/27/25 23:30 Ondansetron HCl 4 mg Q4HP PRN IV 02/27/25 23:30 02/28/25 08:25 4 MG Morphine Sulfate 2 mg Q4HPRN PRN IV 02/27/25 23:30 03/01/25 09:03 2 MG Enoxaparin Sodium 40 mg DAILY SC 02/28/25 10:00 03/01/25 09:01 40 MG Nitroglycerin 0.4 mg Q5MINP PRN SL 02/27/25 23:30 Morphine Sulfate 2 mg Q30M PRN IV 02/27/25 23:30 Ceftriaxone Sodium 50 ml @ 100 mls/hr DAILY IV 02/28/25 10:00 03/01/25 09:04 100 MLS/HR Azithromycin 250 ml @ 125 mls/hr DAILY IV 02/28/25 11:00 03/01/25 10:23 125 MLS/HR Albuterol 2.5 mg Q6HWA NEB 02/28/25 18:00 03/01/25 11:58 2.5 MG Budesonide 0.5 mg BID NEB 02/28/25 22:00 03/01/25 07:07 0.5 MG Ipratropium [place] 0.5 mg Q6HWA NEB 02/28/25 18:00 03/01/25 11:55 0.5 MG Acetaminophen/ Hydrocodone Bitart 2 tab Q6HP PRN PO 03/01/25 15:00 objective Alert awake oriented x3 comfortable in bed without distress. HEENT neck supple no JVD. Lungs fair air movement throughout the lung zones. Chest tube will expansion. No audible rales or wheezes. Abdomen soft positive bowel sounds. Heart regular rate and rhythm S1-S2. Extremities no edema. Positive pulses. laboratory and microbiology Laboratory Tests 03/01/25 04:25 Test 03/01/25 04:25 Range/Units Serum Glucose 101 74-106 mg/dL Assessment/Plan Clinically stable. Oxygenating well. However given his pleuritic nature of chest discomfort I will order a CT angiogram of the chest ruled out PE. Start him on oral steroids for pleuritic pain. Continue antibiotics and breathing treatments as he is on. Monitor him overnight. If he remains stable consider discharge home tomorrow. Discussed with the patient regarding care plan. Problems(with codes): (1) Paroxysmal SVT (supraventricular tachycardia) (2) Pneumonia Dietary Evaluation Review Comments: Encourage him to eat and nurish his body to fight infections or PNA. Continue current plan of care, monitor follow up with renal function indexes Expected Outcomes/Goals: gradual wt loss Plan discussed with: Other IAN CARTER MD March 01, 2025 16:34
[2025-03-01] MEDS ORDERED: IOHEXOL 350 MG/ML 100ML IJ ONE (16:39)
--- NOTE | 2025-03-01 17:27 | DVH ---
CTA Chest with intravenous contrast INDICATION: pleuratic pain COMPARISON: None TECHNIQUE: Multidetector spiral CTA of the chest was performed of the chest with intravenous contrast . PULMONARY ANGIOGRAPHY PROTOCOL was utilized using a bolus-tracking technique centered on the main p ulmonary artery. Axial, coronal and sagittal multiplanar and MIP reformats were performed. CONTRAST: Type of contrast: Omni 350 Contrast injected: 70 ml Radiation dose : Chest: CTDI volume is 27.26 mGy. Dose-length product is 961.44 mGy*cm The dose indicators for CT are the volume computed Tomography (CT) dose Index (CTDIvol) and the dose Length product (DLP), and are measured in units of mGy and mGy-cm, respectively. These indicators are not patient dose, but values generated from the CT scanner acquisition factors. The report includes radiation exposure data for exposures received during this examination. Findings: Pulmonary artery: No pulmonary embolism Lower neck: Normal thyroid. Lungs: Atelectasis and consolidation in the lung bases right greater than left. Heart/Vascular Structures: Normal heart size. No pericardial effusion. Lymph Nodes: No adenopathy Pleura: Large right pleural effusion. Musculoskeletal: No acute osseous abnormality. Soft tissues: Normal. Upper abdomen: Limited portions of the upper abdomen are unremarkable. IMPRESSION: 1. No pulmonary embolism. 2. Large right pleural effusion. Bibasilar atelectasis and consolidation right greater than left. C linical correlation and continued follow-up is recommended. HS:Y
[2025-03-01] MEDS: HYDROcodone-ACET 10/325MG TAB PO PRN (20:01)
--- NOTE | 2025-03-01 20:56 | DVHPN2 ---
Progress Note - Dictate Date Seen: March 01, 2025 Medical Necessity Reason Pt with a Central, PICC or Fol: No Subjective Patient seen and examined at bedside. Remains on supplemental oxygen Overnight events reviewed. vital signs Vital Sign Date Time Temp Pulse Resp B/P (MAP) Pulse Ox O2 Delivery O2 Flow Rate FiO2 03/01/25 18:36 94 16 99 03/01/25 18:28 Nasal Cannula* 2 28 03/01/25 16:00 98.2 122/72 (89) 98.2 Total Intake and Output 02/28/25 02/28/25 03/01/25 15:00 23:00 07:00 Intake Total 50 ml 650 ml Balance 50 ml 650 ml medications Current Medications Medications Dose Ordered Sig/Raquel Route Start Time Stop Time Status Last Admin Dose Admin Docusate Sodium 100 mg BIDPRN PRN PO 02/27/25 23:30 Acetaminophen 650 mg Q6HP PRN PO 02/27/25 23:30 Ondansetron HCl 4 mg Q4HP PRN IV 02/27/25 23:30 02/28/25 08:25 4 MG Morphine Sulfate 2 mg Q4HPRN PRN IV 02/27/25 23:30 03/01/25 09:03 2 MG Enoxaparin Sodium 40 mg DAILY SC 02/28/25 10:00 03/01/25 09:01 40 MG Nitroglycerin 0.4 mg Q5MINP PRN SL 02/27/25 23:30 Morphine Sulfate 2 mg Q30M PRN IV 02/27/25 23:30 Ceftriaxone Sodium 50 ml @ 100 mls/hr DAILY IV 02/28/25 10:00 03/01/25 09:04 100 MLS/HR Azithromycin 250 ml @ 125 mls/hr DAILY IV 02/28/25 11:00 03/01/25 10:23 125 MLS/HR Albuterol 2.5 mg Q6HWA NEB 02/28/25 18:00 03/01/25 18:28 2.5 MG Budesonide 0.5 mg BID NEB 02/28/25 22:00 03/01/25 18:28 0.5 MG Ipratropium [place] 0.5 mg Q6HWA NEB 02/28/25 18:00 03/01/25 18:28 0.5 MG Acetaminophen/ Hydrocodone Bitart 2 tab Q6HP PRN PO 03/01/25 15:00 03/01/25 20:01 2 TAB Prednisone 60 mg BID PO 03/01/25 22:00 Famotidine 20 mg DAILY PO 03/02/25 10:00 objective Gen.: Patient lying in bed in no apparent distress. On supplemental oxygen. Head: Normocephalic, atraumatic. Eyes: EOMI/PERRLA. Ears: Normal hearing. Normal anatomy. Neck/trachea: Trachea midline, supple. Nose: Normal external anatomy. Mouth: Moist mucous membranes. Chest: Decreased air entry bilaterally. No wheezing or rhonchi. Cardiovascular: Positive S1, positive S2. Regular rate and rhythm. Abdomen: Positive bowel sounds in all 4 quadrants. Soft, non-tender, non- distended. : Deferred. Rectal: Deferred. Skin: Warm, dry. Intact. Extremities: 2+ radial pulses bilaterally. No lower extremity edema. Neuro: Awake, alert, oriented x3. No gross motor or sensory deficits. Cranial nerves II through XII intact. Gait not assessed. laboratory and microbiology Laboratory Tests 03/01/25 04:25 Test 03/01/25 04:25 Range/Units Serum Glucose 101 74-106 mg/dL Assessment/Plan Impression: Acute hypoxic respiratory failure Dependence on supplemental oxygen Pneumonia, likely gram negative/gram positive Atelectasis Anxiety Asthma, stable. Events: Remains on supplemental oxygen, 2 LPM NC Taper O2 as tolerated - goal is room air Feeling better, less pain with inspiration Continue bronchodilators Continue antibiotics Incentive spirometry Anxiolytic PRN Disposition per hospitalist Labs and imaging reviewed. Rest of plan as noted below. Plan: Supplemental oxygen Titrate to keep O2 sats above 92%. Continue bronchodilators. Continue antibiotics Incentive spirometry Anxiolytic Monitor renal function. Monitor electrolytes. Supplement as necessary. Monitor ins and outs. DVT prophylaxis. Prognosis: Guarded given patient's multiple co-morbidities. Rest of plan per hospitalist and other consultants. Thank you, JACKIE Walsh, for allowing me to participate in this patient's care. Further recommendations will depend on the patient's clinical course. Please do not hesitate to contact me if you have any questions or concerns. This medical document was created using an electronic medical record system with [employer] dictation system. Although these documentations are being carefully reviewed, there may still be some phonetic and typographical changes. The errors are purely typographical, due to imperfection on the software program, and do not reflect any compromise in the patient's medical care. Dietary Evaluation Review Comments: Encourage him to eat and nurish his body to fight infections or PNA. Continue current plan of care, monitor follow up with renal function indexes Expected Outcomes/Goals: gradual wt loss Plan discussed with: Patient, Other (JUSTIN Angulo) TRUE REGAN MD March 01, 2025 20:56
[2025-03-01] MEDS: predniSONE 20 MG TAB PO SCH (22:03)
[2025-03-02] VITALS (11 sets, daily range): BP systolic 101–144; BP diastolic 60–92; PULSE 77–116; RESP 15–19; TEMP 98–98.5; O2SAT 92–100
[2025-03-02 06:52] LABS: Anion Gap 10 (5-15); Carbon Dioxide 27 mmol/L (20-31); Chloride 100 mmol/L (98-107); Potassium 4.2 mmol/L (3.5-5.1); Sodium 137 mmol/L (136-145)
[2025-03-02 06:56] LABS: Basophils # (auto) 0 10 ^3/uL (0-0.2); Eosinophils # (auto) 0 10 ^3/uL (0-0.8); Hematocrit 38.5 % (41.0-53.0); Lymphocytes # (auto) 0.7 10 ^3/uL (0.4-5.4); Monocytes # (auto) 0.2 10 ^3/uL (0-1.3)
[2025-03-02 06:58] LABS: BUN/Creatinine Ratio 13.6 (10.0-20.0)
[2025-03-02 06:59] LABS: Basophils % (auto) 0.3 % (0.0-2.0); Eosinophils % (auto) 0.1 % (0.0-7.0); Hemoglobin 12.7 g/dL (13.5-17.5); Lymphocytes % (auto) 6.7 % (10.0-50.0); Mean Corpuscular Hgb Conc. 32.9 g/dL (32.0-36.0); Monocytes % (auto) 2.1 % (0.0-12.0); Neutrophils # (auto) 9.8 10 ^3/uL (1.6-8.6); Neutrophils % (auto) 90.8 % (37.0-80.0); Nucleated Red Blood Cells % 0.1 %; Platelet Count (auto) 448 10^3/uL (140-450); Red Blood Cells 4.69 10^6/uL (4.5-5.90); Red Cell Distribution Width 14.4 % (11.8-14.3); White Blood Cell 10.8 10^3/uL (4.4-10.8)
[2025-03-02 07:06] LABS: Blood Urea Nitrogen 8 mg/dL (9-23); Calcium 10.5 mg/dL (8.7-10.4); Glucose 148 mg/dL (74-106)
[2025-03-02] MEDS: FAMOTIDINE 20 MG TAB PO SCH (10:21)
[2025-03-02] MEDS ORDERED: FAMO-161 PO (10:25)
[2025-03-02] MEDS ORDERED: AMOX500T86 PO (10:25)
[2025-03-02] MEDS ORDERED: PRED20TA2 PO (10:25)
[2025-03-02] MEDS ORDERED: IPRA0.00 IN (10:25)
--- NOTE | 2025-03-02 10:26 | DVHDS2 ---
Discharge Summary Date of Admission February 27, 2025 at 23:27 Date of Discharge: March 02, 2025 Labs/Diagnostic Data: Laboratory Results Test 03/02/25 05:09 02/27/25 20:07 02/27/25 19:50 White Blood Count 10.8 10^3/uL (4.4-10.8) Red Blood Count 4.69 10^6/uL (4.5-5.90) Hemoglobin 12.7 g/dL (13.5-17.5) Hematocrit 38.5 % (41.0-53.0) Mean Corpuscular Volume 82.0 fL (80.0-100.0) Mean Corpuscular Hemoglobin 27.0 pg (28.0-32.0) Mean Corpuscular Hemoglobin Concent 32.9 g/dL (32.0-36.0) Red Cell Distribution Width 14.4 % (11.8-14.3) Platelet Count 448 10^3/uL (140-450) Mean Platelet Volume 8.8 fL (6.9-10.8) Neutrophils (%) (Auto) 90.8 % (37.0-80.0) Lymphocytes (%) (Auto) 6.7 % (10.0-50.0) Monocytes (%) (Auto) 2.1 % (0.0-12.0) Eosinophils (%) (Auto) 0.1 % (0.0-7.0) Basophils (%) (Auto) 0.3 % (0.0-2.0) Neutrophils # (Auto) 9.8 10 ^3/uL (1.6-8.6) Lymphocytes # (Auto) 0.7 10 ^3/uL (0.4-5.4) Monocytes # (Auto) 0.2 10 ^3/uL (0-1.3) Eosinophils # (Auto) 0 10 ^3/uL (0-0.8) Basophils # (Auto) 0 10 ^3/uL (0-0.2) Nucleated Red Blood Cells 0.1 % Sodium Level 137 mmol/L (136-145) Potassium Level 4.2 mmol/L (3.5-5.1) Chloride Level 100 mmol/L (98-107) Carbon Dioxide Level 27 mmol/L (20-31) Anion Gap 10 (5-15) Blood Urea Nitrogen 8 mg/dL (9-23) Creatinine 0.59 mg/dL (0.700-1.30) Glomerular Filtration Rate Calc 114 mL/min (>90) BUN/Creatinine Ratio 13.6 (10.0-20.0) Serum Glucose 148 mg/dL (74-106) Calcium Level 10.5 mg/dL (8.7-10.4) Lactic Acid Level 0.8 mmol/L (0.4-2.0) Total Bilirubin 0.2 mg/dL (0.2-1.0) Aspartate Amino Transferase (AST) 9 U/L (13-40) Alanine Aminotransferase (ALT) < 9 U/L (7-40) Alkaline Phosphatase 75 U/L (46-116) B-Type Natriuretic Peptide 31.72 pg/mL (0-100) Total Protein 7.2 g/dL (5.7-8.2) Albumin 4.2 g/dL (3.2-4.8) Influenza Type A Antigen Negative (Negative) Influenza Type B Antigen Negative (Negative) SARS-CoV-2 Antigen (Rapid) Negative (NEGATIVE) Other Laboratory Tests 03/02/25 05:09 Brief Hx & Hospital Course: 54-year-old male presents with complaints of cough congestion, shortness of breath and chest tightness x1 month. Patient was initially treated with amoxicillin in the 1st week of January. However symptoms continued. return to urgent care a few weeks later because symptoms had not improved and was then treated with azithromycin. Patient states he completed all antibiotic treatments. Is still complaining of right-sided chest tightness and congestion. On arrival to the emergency department patient is found to be febrile. Treat the emergency department evaluation W 15.7. CXR impression reads right basilar pneumonia or atelectasis. At this time patient denies dizziness, chest pain, nausea, vomiting, leg swelling. He is admitted and treated for his symptoms with IV steroids, empiric antibiotics and nebulizer treatments. Patient's CT angio of the chest negative for PE. Patient's symptoms improved with medical treatment. He is feeling better back to baseline normal status. Therefore it is felt he could be safely discharged home. Home health and home med nebulizer is arranged. Patient is advised to continue the breathing treatments with the nebulizer as prescribed and other home medications as prescribed. Advised to follow up with the PCP and referral to blood bank assistant as appropriate. Patient verbalized understanding of his hospital diagnosis, treatment he received, discharge medications, discharge instructions and agree with the discharge follow-up plan of care as outlined. Operations or Procedures CTA Chest with intravenous contrast INDICATION: pleuratic pain COMPARISON: None TECHNIQUE: Multidetector spiral CTA of the chest was performed of the chest with intravenous contrast. PULMONARY ANGIOGRAPHY PROTOCOL was utilized using a bolus- tracking technique centered on the main pulmonary artery. Axial, coronal and sagittal multiplanar and MIP reformats were performed. CONTRAST: Type of contrast: Omni 350 Contrast injected: 70 ml Radiation dose : Chest: CTDI volume is 27.26 mGy. Dose-length product is 961.44 mGy*cm The dose indicators for CT are the volume computed Tomography (CT) dose Index (CTDIvol) and the dose Length product (DLP), and are measured in units of mGy and mGy-cm, respectively. These indicators are not patient dose, but values generated from the CT scanner acquisition factors. The report includes radiation exposure data for exposures received during this examination. Findings: Pulmonary artery: No pulmonary embolism Lower neck: Normal thyroid. Lungs: Atelectasis and consolidation in the lung bases right greater than left. Heart/Vascular Structures: Normal heart size. No pericardial effusion. Lymph Nodes: No adenopathy Pleura: Large right pleural effusion. Musculoskeletal: No acute osseous abnormality. Soft tissues: Normal. Upper abdomen: Limited portions of the upper abdomen are unremarkable. IMPRESSION: 1. No pulmonary embolism. 2. Large right pleural effusion. Bibasilar atelectasis and consolidation right greater than left. Clinical correlation and continued follow-up is recommended. HS:Y Condition at Discharge: Stable Final Diagnosis/Problems List Acute bronchitis, COPD exacerbation Discharge Disposition: Home Discharge Instruct/Medications Diet: Consistent carbohydrate, Cardiac 2g Na,low cholest Activity: No Restrictions, As Tolerated Follow Up/Referral: Primary care physician two weeks for further COPD management and referral to blood bank assistant as appropriate Medications: Take medications as prescribed and continue home medications per discharge list New Medications: Amoxicillin & Pot Clavulanate (Augmentin) 500 Mg Tab 1 TAB PO BID, #10 TAB Famotidine (Pepcid AC) 20 Mg Tab 20 MG PO DAILY, #21 TAB Ipratropium-Albuterol (Ipratropium [place]/Albut) 1 Estefani Estefani 1 ESTEFANI IN TID, #90 ML Prednisone (Prednisone) 20 Mg Tab 20 MG PO BID, #14 MG Continued Medications: Albuterol Sulfate (Ventolin Mdi) 90 Mcg Ih 90 MCG IN DAILY, INH Beclomethasone Dipropionate (Qvar Redihaler) 40 Mcg/Act Aer 40 MCG IN DAILY, AER Hydrocodone-Acetaminophen (Hydrocodone Bitartrate/AC 10-325 mg) 1 Tab Tab 1 TAB PO DAILY, TAB Discharge Statement: "Patient was advised to return to the ER or call 911 if any headaches, dizziness, shortness of breath, chest pain, abdominal pain, bleeding, fevers, or worsening of medical condition. Patient was counseled about treatment plan, medications, possible side effects, patientverbalized understanding. All questions were answered to the best of my ability. This discharge took greater then 30 minutes in planning, reviewing documentation, counseling the patient, and discussing with other team members." ASSESSMENT ASSESSMENT Assessment Acute bronchitis, COPD exacerbation IAN CARTER MD March 02, 2025 10:26
--- NOTE | 2025-03-02 19:17 | DVHPN2 ---
Progress Note - Dictate Date Seen: March 02, 2025 Medical Necessity Reason Pt with a Central, PICC or Fol: No Subjective Patient seen and examined at bedside. Breathing on room air Overnight events reviewed. vital signs Vital Sign Date Time Temp Pulse Resp B/P (MAP) Pulse Ox O2 Delivery O2 Flow Rate FiO2 03/02/25 16:20 98.3 116 15 144/92 (109) 92 98.3 03/02/25 13:00 Room Air 03/02/25 13:00 0 21 Total Intake and Output 03/01/25 03/01/25 03/02/25 15:00 23:00 07:00 Intake Total 50 ml 500 ml 900 ml Balance 50 ml 500 ml 900 ml objective Gen.: Patient lying in bed in no apparent distress. On room air Head: Normocephalic, atraumatic. Eyes: EOMI/PERRLA. Ears: Normal hearing. Normal anatomy. Neck/trachea: Trachea midline, supple. Nose: Normal external anatomy. Mouth: Moist mucous membranes. Chest: Decreased air entry bilaterally. No wheezing or rhonchi. Cardiovascular: Positive S1, positive S2. Regular rate and rhythm. Abdomen: Positive bowel sounds in all 4 quadrants. Soft, non-tender, non- distended. : Deferred. Rectal: Deferred. Skin: Warm, dry. Intact. Extremities: 2+ radial pulses bilaterally. No lower extremity edema. Neuro: Awake, alert, oriented x3. No gross motor or sensory deficits. Cranial nerves II through XII intact. Gait not assessed. laboratory and microbiology Laboratory Tests 03/02/25 05:09 Test 03/02/25 05:09 Range/Units Serum Glucose 148 H 74-106 mg/dL Assessment/Plan Impression: Acute hypoxic respiratory failure Dependence on supplemental oxygen Pneumonia, likely gram negative/gram positive Atelectasis Anxiety Asthma, stable. Events: Currently breathing on room air Supplemental oxygen PRN No distress No new complaints Continue bronchodilators Continue antibiotics Continue steroids Incentive spirometry Patient is stable for discharge from the pulmonary standpoint. Disposition per hospitalist. Follow up in 2-3 weeks in Pulmonary Clinic. Labs and imaging reviewed. Rest of plan as noted below. Plan: Supplemental oxygen PRN Titrate to keep O2 sats above 92%. Continue bronchodilators. Continue antibiotics Incentive spirometry Monitor renal function. Monitor electrolytes. Supplement as necessary. Monitor ins and outs. DVT prophylaxis. Prognosis: Guarded given patient's multiple co-morbidities. Rest of plan per hospitalist and other consultants. Thank you, [employer]ACH[employer] OPERATOR Nico, for allowing me to participate in this patient's care. Further recommendations will depend on the patient's clinical course. Please do not hesitate to contact me if you have any questions or concerns. This medical document was created using an electronic medical record system with [employer] dictation system. Although these documentations are being carefully reviewed, there may still be some phonetic and typographical changes. The errors are purely typographical, due to imperfection on the software program, and do not reflect any compromise in the patient's medical care. Dietary Evaluation Review Comments: Encourage him to eat and nurish his body to fight infections or PNA. Continue current plan of care, monitor follow up with renal function indexes Expected Outcomes/Goals: gradual wt loss Plan discussed with: Patient, Other (RN) TRUE REGAN MD March 02, 2025 19:17
== END 2025-03-02 17:50 | disposition home health service (06) | DRG 177 ==
LOC: ER 18:41 → OVERFLOW 23:27 → TELE-CENTR 02-28 18:20
PROVIDERS: ADMIT Hospitalist; ATTEND Hospitalist
DX: J15.69 Pneumonia due to other Gram-negative bacteria (principal); J96.01 Acute respiratory failure with hypoxia; J44.1 Chronic obstructive pulmonary disease with (acute) exacerbation; J44.0 Chronic obstructive pulmonary disease with (acute) lower respiratory infection; J15.9 Unspecified bacterial pneumonia; J20.9 Acute bronchitis, unspecified; Z20.822 Contact with and (suspected) exposure to COVID-19; F41.9 Anxiety disorder, unspecified; I10 Essential (primary) hypertension; Z99.81 Dependence on supplemental oxygen; Z79.891 Long term (current) use of opiate analgesic; Z79.899 Other long term (current) drug therapy; Z79.1 Long term (current) use of non-steroidal anti-inflammatories (NSAID)
CPT/HCPCS: 36415; 71045; 71275; 80048; 80053; 83605; 83880; 85025; 87040; 87426; 87804; 93005; 94640; G0378; J2405